=== PATIENT | female | born 1980 ===

== ENCOUNTER 2016-11-06 16:19 | Outpatient (RCR) | payer MEDICAID ==
[2016-11-06 14:49] LABS: BASOPHILS % (AUTO) 0 % (0-2); EOSINOPHILS # (AUTO) 0.1 10^3uL; EOSINOPHILS % (AUTO) 1 % (0-4); LYMPHOCYTES # (AUTO) 1.4 X10^3; MEAN CORPUSCULAR HEMOGLOBIN 28.9 PG (26.0-34.0); MEAN CORPUSCULAR HGB CONC 34.3 g/dL (31.0-37.0); MEAN CORPUSCULAR VOLUME 84 FL (80-100); MEAN PLATELET VOLUME 10.1 FL (6.0-9.5); MONOCYTES # (AUTO) 0.7 X10^3; MONOCYTES % (AUTO) 5 % (3-11); NEUTROPHILS # (AUTO) 11.7 X10^3; NEUTROPHILS % (AUTO) 84 % (51-67); PLATELET COUNT 425 10^3uL (150-450); WHITE BLOOD COUNT 13.95 10^3uL (4.0-11.0)
[2016-11-06] MEDS ORDERED: RHO(D) IMMUNE GLOBULIN 1,500 UNIT/2 ML SYRINGE IM SCH (16:25)
== END 2017-02-04 | disposition home or self-care (01) ==
LOC: EUOP 16:19
PROVIDERS: ATTEND Obstetrics & Gynecology
DX: O09.521 Supervision of elderly multigravida, first trimester (principal); F41.1 Generalized anxiety disorder; F33.2 Major depressive disorder, recurrent severe without psychotic features; O09.522 Supervision of elderly multigravida, second trimester; Z3A.00 Weeks of gestation of pregnancy not specified
CPT/HCPCS: 36415; 82947; 82950; 85025; 86850; 86900; 86901

== ENCOUNTER → 2017-01-24 | Outpatient (REF) | payer MEDICAID | LOC: LAB 16:22 | PROVIDERS: ATTEND Obstetrics & Gynecology | DX: Z33.1 Pregnant state, incidental (principal) | CPT/HCPCS: 87653 ==

== ENCOUNTER → 2017-01-24 | Emergency (ER) | payer MEDICAID ==
[~2017-01-24] VITALS: Ht 152.4 cm; Wt 100.0 kg
[2017-01-24 14:13] VITALS: BP 127/87
== END | disposition still patient (30) ==
LOC: ED 14:04
DX: K02.9 Dental caries, unspecified (principal)
CPT/HCPCS: 99283

== ENCOUNTER 2017-02-10 19:33 | Outpatient (CLI) | payer MEDICAID ==
[~2017-02-10] VITALS: Ht 152.4 cm; Wt 84.0 kg
[2017-02-10 19:54] VITALS: BP 118/65
== END 2017-02-10 20:25 ==
LOC: OBGOP 19:33 → OB 19:34 → OBGOP 20:25
PROVIDERS: ATTEND Obstetrics & Gynecology
DX: O26.893 Other specified pregnancy related conditions, third trimester (principal); R10.2 Pelvic and perineal pain; Z3A.39 39 weeks gestation of pregnancy
CPT/HCPCS: 99202

== ENCOUNTER 2017-02-14 07:30 | Outpatient (RCR) | payer MEDICAID ==
[~2017-02-14 07:30] MED LIST: AMOX500C5 PO; BUSP5TAB59 PO; ESCI10TA49 PO; HYDR-3702 PO; PREN-142 PO
[2017-02-14] MEDS ORDERED: morphine PF 0.5 MG/ML (DURAMORPH) 10 ML VIAL IV ONE (18:15)
[2017-02-14] MEDS ORDERED: ROPIVACAINE 1% 10 MG/ML (NAROPIN) 20 ML AMPUL ONE (18:15)
[2017-02-14] MEDS ORDERED: OXYTOCIN 10 UNIT/ML (PITOCIN) 1 ML VIAL ONE ×2 (18:30→18:34)
[2017-02-14] MEDS ORDERED: ePHEDrine SULFATE 50 MG/ML 1 ML AMP ONE (18:48)
[2017-02-14] MEDS ORDERED: MIDAZOLAM 2 MG/2 ML (VERSED) VIAL ONE (19:05)
== END 2017-04-24 18:33 | disposition home or self-care (01) ==
LOC: EUOP 07:30
PROVIDERS: ATTEND Obstetrics & Gynecology
DX: Z53.9 Procedure and treatment not carried out, unspecified reason (principal)

== ENCOUNTER 2017-02-14 12:00 | Inpatient (IN) | payer MEDICAID ==
[2017-02-13] MEDS: DOCUSATE SODIUM 100 MG (COLACE) CAP PO SCH (21:00)
[2017-02-14] VITALS (25 sets, daily range): BP systolic 97–130; BP diastolic 43–84
[~2017-02-14] VITALS: Ht 152.4 cm; Wt 83.6 kg
[2017-02-14] MEDS ORDERED: OXYTOCIN INJ 20 UNIT in NS 1000ml 1,000 ML IV PRN ×3 (12:56→13:45)
[2017-02-14] MEDS ORDERED: CALCIUM CARBONATE CHEWABLE 300 MG (TUMS) TABLET PO PRN (13:00)
[2017-02-14 13:32] LABS: MEAN CORPUSCULAR HEMOGLOBIN 29.1 PG (26.0-34.0); MEAN CORPUSCULAR HGB CONC 34.5 g/dL (31.0-37.0); MEAN PLATELET VOLUME 10.3 FL (6.0-9.5); WHITE BLOOD COUNT 18.27 10^3uL (4.0-11.0)
[2017-02-14] MEDS ORDERED: ROPIVACAINE 1% 10 MG/ML (NAROPIN) 20 ML AMPUL ONE (13:50)
[2017-02-14 15:09] LABS: BILIRUBIN,URINE Negative (Negative); CLARITY,URINE Clear; COLOR,URINE Yellow; GLUCOSE, URINE (UA) Negative (Negative); LEUKOCYTE ESTERASE ,URINE Negative (Negative); PH,URINE 6.5 (5.0 - 8.0); UROBILINOGEN,URINE 0.2 mg/dL (0.2-1.0)
[2017-02-14 15:39] LABS: AMPHETAMINE SCREEN, URINE Negative (Negative); CANNABINOID SCREEN, URINE Negative (Negative); METHAMPHETAMINE SCREEN URINE S NEGATIVE (NEGATIVE); OPIATE SCREEN URINE Negative (Negative); PROPOXYPHENE STAT NEGATIVE (NEGATIVE)
[2017-02-14] MEDS ORDERED: TERBUTALINE 1 MG/ML (BRETHINE) 1 ML AMP ONE (18:13)
[2017-02-14] MEDS ORDERED: METOCLOPRAMIDE 10 MG/2 ML (REGLAN) VIAL IV SCH (18:15)
[2017-02-14] MEDS ORDERED: POT BICARB/SOD BICARB/CIT AC (ALKA-SELTZER GOLD) 1 TABLET.EFF PO SCH (18:15)
[2017-02-14] MEDS ORDERED: TERBUTALINE 1 MG/ML (BRETHINE) 1 ML AMP SC ONE (18:16)
[2017-02-14] MEDS ORDERED: ceFAZolin 2,000 MG in SODIUM CHLORIDE VIAL (PF) 20 ML IV SCH (18:20)
[2017-02-14] MEDS ORDERED: ceFAZolin 1000 MG (ANCEF) VIAL ONE (18:21)
[2017-02-14] MEDS ORDERED: SODIUM CHLORIDE FLUSH 10 ML ONE ×2 (18:22→18:23)
[2017-02-14] MEDS ORDERED: ONDANSETRON 2 MG/ML (Z0FRAN) 2 ML VIAL IV ONE (18:35)
[2017-02-14] MEDS ORDERED: OXYTOCIN INJ 20 UNIT in NS 1000ml 1,000 ML IV SCH (20:22)
[2017-02-14] MEDS ORDERED: LANOLIN OINTMENT 28 GM TUBE TOP PRN (20:25)
[2017-02-14] MEDS ORDERED: diphenhydrAMINE 50 MG/ML INJ (BENADRYL) ONE (22:38)
[2017-02-14] MEDS: IBUPROFEN 600 MG (MOTRIN) TAB PO SCH (22:39)
[2017-02-14] MEDS ORDERED: ONDANSETRON 2 MG/ML (Z0FRAN) 2 ML VIAL IV PRN (22:40)
[2017-02-14] MEDS ORDERED: NALOXONE 0.4 MG/ML (NARCAN) 1 ML VIAL IV PRN ×2 (22:40)
[2017-02-14] MEDS ORDERED: diphenhydrAMINE 25 MG (BENADRYL) TABLET PO PRN (22:40)
[2017-02-14] MEDS ORDERED: diphenhydrAMINE 50 MG/ML INJ (BENADRYL) IV PRN (22:40)
[2017-02-14] MEDS ORDERED: NALBUPHINE 10 MG/ML (NUBAIN) 1 ML AMP IV PRN ×2 (22:40)
[2017-02-14] MEDS ORDERED: diphenhydrAMINE 50 MG/ML INJ (BENADRYL) IM PRN (22:40)
[2017-02-15] VITALS: BP 113/54
[2017-02-15] MEDS: IBUPROFEN 600 MG (MOTRIN) TAB PO SCH ×4 (03:44→20:59)
[2017-02-15] MEDS: diphenhydrAMINE 50 MG (BENADRYL) CAPSULE PO PRN ×3 (03:56→15:37)
[2017-02-15 04:06] VITALS: BP 111/61
[2017-02-15 07:32] LABS: MEAN CORPUSCULAR HEMOGLOBIN 29.2 PG (26.0-34.0); MEAN CORPUSCULAR HGB CONC 34.4 g/dL (31.0-37.0); MEAN PLATELET VOLUME 10.4 FL (6.0-9.5); WHITE BLOOD COUNT 20.05 10^3uL (4.0-11.0)
[2017-02-15] MEDS: CALCIUM CARBONATE CHEWABLE 300 MG (TUMS) TABLET PO PRN (08:00)
[2017-02-15 08:45] VITALS: BP 105/59
[2017-02-15 12:30] VITALS: BP 114/62
--- NOTE | 2017-02-15 12:33 | NUR ---
Dr Ochoa in to assess pt. Verbal order to DC IV
--- NOTE | 2017-02-15 13:06 | NUR ---
Pt up to bathroom to void.
--- NOTE | 2017-02-15 15:13 | NUR ---
Patient requesting to go to cafeteria to browse for something to eat. Explained to patient that we don't let our patients off the unit until discharged but ask the kitchen to bring something up. Patient adamant that she want to look for herself. Pt early on in the morning had asked if she could go outside to smoke and had been told that smoking is not allowed on the property but could offer a nicotine patch. Not wanting to get the patient more agitated let off the unit in a wheelchair with an other adult. paperhanger supervisor called and informed that patient was off unit and potential going to smoke. Pt escorted back by bath house attendant and maintenance.
[2017-02-15 15:50] VITALS: BP 123/58
[2017-02-15] MEDS: NICOTINE 21 MG (NICODERM) PATCH TD SCH (15:55)
[2017-02-15] MEDS: oxyCODONE/ACETAMINOPHEN 5MG-325 MG (PERCOCET) TABLET PO PRN ×3 (19:19→23:54)
[2017-02-15 19:30] VITALS: BP 118/68
[2017-02-15] MEDS: DOCUSATE SODIUM 100 MG (COLACE) CAP PO SCH (20:57)
[2017-02-16] MEDS: oxyCODONE/ACETAMINOPHEN 5MG-325 MG (PERCOCET) TABLET PO PRN ×3 (00:10→12:36)
[2017-02-16] MEDS: IBUPROFEN 600 MG (MOTRIN) TAB PO SCH ×2 (02:46→08:57)
[2017-02-16] MEDS: NICOTINE 21 MG (NICODERM) PATCH TD SCH (08:58)
[2017-02-16] MEDS ORDERED: NICOTINE PATCH REMOVAL TOP SCH (08:59)
[2017-02-16 09:07] VITALS: BP 144/78
[2017-02-16] MEDS: CALCIUM CARBONATE CHEWABLE 300 MG (TUMS) TABLET PO PRN (11:02)
--- NOTE | 2017-02-16 11:06 | NUR ---
Pt c/o indigestion and requests Tums. Tums 2 tabs given at this time.
--- NOTE | 2017-02-16 11:20 | NUR ---
Patient and significant other watching Period of Purple Crying DVD at this time.
--- NOTE | 2017-02-16 12:42 | NUR ---
1200-Post teaching completed on patient and baby. Parents ask questions, all questions answered and they verbalize understanding. 1230-Dismissal teaching completed. They verbalize understanding.
--- NOTE | 2017-02-16 13:20 | NUR ---
1300-Escorted out front entrance of hospital at this time.
== END 2017-02-16 13:00 | disposition home or self-care (01) | DRG 766 ==
LOC: OB 12:00 → OBGOP 12:00 → OB 13:00
PROVIDERS: ADMIT Family Medicine; ATTEND Family Medicine
PROC: 10D00Z1 Extraction of Products of Conception, Low, Open Approach (ICD-10-PCS; principal; 2017-02-14)
DX: O65.4 Obstructed labor due to fetopelvic disproportion, unspecified (principal); O99.334 Smoking (tobacco) complicating childbirth; F17.210 Nicotine dependence, cigarettes, uncomplicated; O99.02 Anemia complicating childbirth; D64.9 Anemia, unspecified; Z3A.39 39 weeks gestation of pregnancy; Z37.0 Single live birth
CPT/HCPCS: 36415; 59510; 80307; 81003; 85014; 85018; 85027; 86803; 86850; 86900; 86901; 87340; 99202

== ENCOUNTER → 2017-02-15 | Outpatient (REF) ==
[2017-02-15 17:34] LABS: HEPATITIS B SURFACE ANTIGEN C Negative
== END ==
LOC: CLAB.CORPH 07:20
PROVIDERS: ATTEND Family Medicine
DX: Z02.89 Encounter for other administrative examinations (principal)
CPT/HCPCS: 86803; 87340